=== PATIENT | female | born 1955 | race Caucasian/White ===

== ENCOUNTER → 2020-12-28 | Day surgery (SDC) | payer OTHER ==
[~2020-12-28] VITALS: Ht 154.9 cm; Wt 44.9 kg
[~2020-12-28] MED LIST: TOPAMAX100 MG PO; VENTOLIN HFA IN18 GM INH; VIMPAT200 MG PO
[2020-12-28 11:44] LABS: EOSINOPHIL 1.5 % (0-7); HCT 40.2 % (37.0-47.0); HGB 13.1 g/dl (12.5-16.0); LYMPHOCYTE 23.4 % (15-48); MCH 34.2 pg (25.0-31.0); MCHC 32.6 g/dL (32.0-36.0); MONOCYTE 9.8 % (0-12); MPV 11.1 fL (6.0-9.5); NEUTROPHIL 63.8 % (41-80); NRBC 0; PLT 252 K/uL (150-400); RBC 3.83 M/uL (4.20-5.40); RDW 12.3 % (11.5-14.0)
== END | disposition home or self-care (01) ==
LOC: FAS 10:14
PROVIDERS: Oral & Maxillofacial Surgery
DX: K02.9 Dental caries, unspecified (principal); K04.7 Periapical abscess without sinus; G40.909 Epilepsy, unspecified, not intractable, without status epilepticus; J44.9 Chronic obstructive pulmonary disease, unspecified; Z20.822 Contact with and (suspected) exposure to COVID-19; Z88.5 Allergy status to narcotic agent
CPT/HCPCS: 36415; 71045; 85025; J1100; J1170; J1885; J2250; J2405; J2704; J3010; J7120